=== PATIENT | male | born 1970 | race Caucasian/White ===

== ENCOUNTER → 2016-12-11 | Outpatient (CLI) | payer OTHER, BC ==
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
== END | disposition home or self-care (01) ==
LOC: C.RAD1850 16:33
PROVIDERS: ATTEND Family Medicine
DX: M54.2 Cervicalgia (principal); V89.2XXA Person injured in unspecified motor-vehicle accident, traffic, initial encounter

== ENCOUNTER → 2016-12-26 | Outpatient (CLI) | payer OTHER, BC ==
--- NOTE | 2016-12-26 11:10 | DIAGNOSTIC IMAGING REPORT ---
C-SPINE ROUTINE 4 OR 5 VIEWS CLINICAL HISTORY: C7 spinous process fracture COMPARISON STUDY: 12/11/2016 FINDINGS: The prevertebral soft tissues appear normal. There is a C7 spinous process fracture which is likely old. There are degenerative changes most pronounced the C4-5 level. IMPRESSION: 1. No acute fractures identified 2. No evidence of traumatic subluxation 3. Degenerative changes most pronounced the C4-5 level 4. C7 spinous process fracture, likely old Electronically signed by: Vern Leone M.D. 12/26/2016 11:09 AM Dictated Date/Time: 12/26/2016 11:05 AM
== END | disposition home or self-care (01) ==
LOC: C.RAD1850 10:50
PROVIDERS: ATTEND Family Medicine
DX: S12.9XXD Fracture of neck, unspecified, subsequent encounter (principal); X58.XXXD Exposure to other specified factors, subsequent encounter

== ENCOUNTER → 2017-02-05 | Outpatient (CLI) | payer OTHER, BC ==
--- NOTE | 2017-02-05 16:22 | DIAGNOSTIC IMAGING REPORT ---
CERVICAL SPINE SERIES CLINICAL HISTORY: C7 fracture COMPARISON STUDY: 12/26/2016 FINDINGS: The prevertebral soft tissues are normal. There are mild degenerative changes most pronounced the C4-5 level. There is a C7 spinous process fracture which is likely old. There is no significant change from the prior study. IMPRESSION: 1. No acute fractures or subluxations identified 2. Degenerative changes most pronounced the C4-5 level 3. C7 spinous process fracture likely old Electronically signed by: Vern Leone M.D. 02/05/2017 4:20 PM Dictated Date/Time: 02/05/2017 4:18 PM
== END | disposition home or self-care (01) ==
LOC: C.RAD1850 15:47
PROVIDERS: ATTEND Family Medicine
DX: S12.9XXD Fracture of neck, unspecified, subsequent encounter (principal); X58.XXXA Exposure to other specified factors, initial encounter